=== PATIENT | male | born 1970 | race Caucasian/White ===

== ENCOUNTER 2016-11-01 18:41 | Emergency (ER) ==
[2016-11-01] MEDS ORDERED: NORFLEX IM ONE (19:40)
[2016-11-01] MEDS ORDERED: TORADOL IM ONE (19:40)
[2016-11-01] MEDS ORDERED: DILAUDID IM ONE (19:40)
--- NOTE | 2016-11-01 19:45 | PROVIDER DOCUMENTATION ---
HPI-Musculoskeletal Pain/Inj - GENERAL Chief Complaint: Extremity Injury Stated Complaint: @1630 BODY INJURIES Time Seen by Provider: 11/01/16 19:11 Source: patient - HX OF PRESENT ILLNESS-MUSKULOSKELTAL Nature of Presenting Problem: 45 y/o WM c/o back pain, neck pain, R hand pain x 2 hours s/p fall from 15 foot ladder. Pt states that he was collapsing a 28 foot ladder while he was at the 15 foot height when the ladder fell forward, hit the house, and flung him onto his R low back. States R hand pain, as his R hand got caught in the rung during collapsing ladder. Reports LROM in neck; pain in lumbar and thoracic back; shooting pain radiating into LLE. Denies inability to ambulate, head injury, LOC. Pt states hx of seizures. States pain 06/06. Review of Systems - Adult - REVIEW OF SYSTEMS - ADULT Constitutional: reports: no symptoms reported. denies: chills, fever Eyes: reports: no symptoms reported. denies: blurred vision, double vision Ears, Nose, Mouth & Throat: reports: no symptoms reported. denies: ear pain, nose pain Cardiovascular: reports: no symptoms reported. denies: see HPI, palpitations Respiratory: reports: no symptoms reported. denies: dyspnea on exertion, shortness of breath Gastrointestinal: reports: no symptoms reported. denies: abdominal pain, nausea , vomiting Genitourinary: reports: no symptoms reported. denies: dysuria, frequency Musculoskeletal: reports: see HPI, back pain, joint pain, neck pain. denies: joint swelling Integumentary: reports: no symptoms reported. denies: nail changes, rash Neurological: reports: see HPI. denies: dizziness/vertigo, headache/migraines, numbness, paresthesia Psychiatric: reports: no symptoms reported Endocrine: reports: no symptoms reported. denies: cold intolerance, heat intolerance Hematologic/Lymphatic: reports: no symptoms reported. denies: easy bruising, prolonged bleeding Allergic/Immunologic: reports: no symptoms reported All Other Systems: Reviewed and Negative Past History - Adult - PAST MEDICAL HISTORY-ADULT Review of Records: reports: Nursing Assessment Review, Medications Reviewed - SOCIAL HISTORY Smoking: cigarettes, greater than 1 pack/day Provider spent 3-5 mins advising pt. on dangers of tobacco.: Discussed manners to quit use, and f/u contacts for add'l counseling. Alcohol Use Frequency: never Physical Exam-Injury Related - Physical Exam-Injury Related Initial Vital Signs Reviewed: Yes General Appearance: alert, mild distress Eyes: PERRL/EOMI, pink conjunctivae. negative: EOM palsy Head, Ears, Nose, Mouth & Throat: normocephalic/atraumatic, moist mucous membranes Neck: normal inspection, C-spine tenderness. negative: nexus criteria negative Respiratory: chest non-tender, lungs clear, normal breath sounds. negative: crackles, rales, rhonchi, stridor, wheezing Cardiovascular: regular rate, rhythm. negative: bradycardia, tachycardia Abdominal Exam: normal bowel sounds, non tender, soft. negative: distended, guarding, rigid, rebound Back Exam: vertebral tenderness (C, T, L spine), other (TTP R low back) Extremity: normal capillary refill, pelvis stable, swelling (R hand), tenderness (R hand). negative: abnormal NV exam Integumentary: normal color, warm/dry Neurologic: negative: aphasia Psych/Mental Status: AL, normal mood/affect, normal thought content, normal thought process, oriented x 3 Progress - PLAN OF CARE/RESULTS Progress/Plan/Lab Results: Orders Category Date Time Status HAND COMPLETE LEFT [RAD] Stat Exams 11/01/16 19:34 Taken HEAD/C-SPINE W/O CONTRAST [CT] Stat Exams 11/01/16 19:34 Taken LUMBAR SPINE W/O CONTRAST [CT] Stat Exams 11/01/16 19:34 Taken PELVIS [RAD] Stat Exams 11/01/16 19:35 Taken SHOULDER-RIGHT [RAD] Stat Exams 11/01/16 19:35 Taken THORACIC SPINE W/O CONTRAST [CT] Stat Exams 11/01/16 Taken Hydromorphone [Dilaudid] Med 11/01/16 19:40 Discontinued 2 mg IM NOW ONE Ketorolac [Toradol] Med 11/01/16 19:40 Discontinued 60 mg IM NOW ONE Orphenadrine [Norflex] Med 11/01/16 19:40 Discontinued 60 mg IM NOW ONE Vital Signs Temp Pulse Resp BP Pulse Ox 11/01/16 18:59 98.7 F 87 18 162/92 99 orange Allergy (Verified 11/01/16 19:42) ANAPHYLAXIS Lamotrigine [Lamictal] 25 mg PO DAILY 11/01/16 Meloxicam [Mobic] 15 mg PO DAILY #30 tablet 11/01/16 Methocarbamol [Robaxin] 500 mg PO BID #30 tablet 11/01/16 Tramadol [Ultram] 50 mg PO Q8HR #20 tablet 11/01/16 Discussed medication use, ice and heat therapy, and f/u with ortho with the pt. - XRAY 1 XRAY Study: Pelvis XRAY Interpretation: No fx 2 XRAY: Right XRAY Study: Hand XRAY Interpretation: No fx 3 XRAY: Right XRAY Study: Shoulder XRAY Interpretation: No fx - CT/MRI 1 CT Study: Cervical Spine, Head, other (thoracic spine) Impression: See EMR Report (head: no evidence of intracranial injury. Cspine: no fx, no subluxation. Chronic appearing deformity at posterior spinous process of T1. -per Dr. Peter) 2 CT Study: Lumbar Spine Impression: See EMR Report (No fracture, no subluxation) Procedures - SPLINTING Left Upper Extremity Pre-Procedure Neurovascular Exam: Intact Pre-Fabricated Splint: Wrist Applied By: ED Nurse Post Procedure Neurovascular Exam: Intact Procedure Comment: Pt tolerated well Departure - Departure Time of Disposition Order: 21:08 DIAGNOSIS: Fall Qualifiers: Encounter type: initial encounter Qualified Code(s): W19.XXXA - Unspecified fall, initial encounter Thoracic back sprain Qualifiers: Encounter type: initial encounter Qualified Code(s): S23.9XXA - Sprain of unspecified parts of thorax, initial encounter Lumbar back sprain Qualifiers: Encounter type: initial encounter Qualified Code(s): S33.5XXA - Sprain of ligaments of lumbar spine, initial encounter Neck sprain Qualifiers: Encounter type: initial encounter Qualified Code(s): S13.9XXA - Sprain of joints and ligaments of unspecified parts of neck, initial encounter Hand injury Qualifiers: Encounter type: initial encounter Laterality: left Qualified Code(s): S69.92XA - Unspecified injury of left wrist, hand and finger(s), initial encounter Disposition: HOME 01 Certified Medical Emergency: Emergent Condition: Stable Additional Instructions: Take medications as directed. Follow up with specialist for further management. RICE or heat as needed. ED Follow Up Instructions: You have been treated by a care provider in the Emergency Department. These instructions are being provided to you so you can have an understanding of how to care for yourself upon discharge. Upon discharge from the Emergency Department, you are responsible for making arrangements for follow-up care by a physician of your choice. Take all prescribed medications as directed. Return to the Emergency Department immediately for any new or worsening symptoms. You may call the Physician Referral phone number at [phone] to obtain a list of Physicians who are taking new patients. Prescriptions: Meloxicam [Mobic] 15 mg PO DAILY #30 tablet Methocarbamol [Robaxin] 500 mg PO BID #30 tablet Tramadol [Ultram] 50 mg PO Q8HR #20 tablet Referrals: None,PCP [Primary Care Provider] - Hermelindo Alonso MD [STAFF PHYSICIAN] - Instructions: Thoracic Strain, Back Pain, Adult, [id number] Attestation - Physician/ Mid-level Attestation Patient care was provided by Mid-level provider (BULB GRADER/PA):: Yes Mid-level provider:: Kati Brenner Mid-level documentation review:: The Mid-level provider documentation, treatment plan and medical decision making was reviewed by the physician who agrees with all treatment and medical decision making by the P.
[2016-11-01 21:38] VITALS: BP 144/93
--- NOTE | 2016-11-02 07:47 | Diag Imaging Result Document ---
PROCEDURE NAME: HEAD/C-SPINE W/O CONTRAST - 11/01/2016 CT HEAD AND C-SPINE WITHOUT CONTRAST: COMPARISON: None available. FINDINGS: HEAD: There is no discrete intracranial mass, mass effect, or intracranial hemorrhage. There is no evidence of hydrocephalus. There is no evidence of acute infarct. Surrounding soft tissues are grossly unremarkable. Calvaria is intact. C-SPINE: There is a chronic defect at the posterior aspect of the spinous process of T1. There is no evidence of acute fracture, subluxation, or intrinsic osseous lesion, otherwise. There is minimal endplate degenerative change at several cervical levels. The central canal appears to be patent. There is nonspecific prominence of the soft tissues at the level of the right vallecula of uncertain significance. Please correlate clinically. Surrounding soft tissues are essentially unremarkable, otherwise. IMPRESSION: 1. No evidence of acute intracranial pathology. 2. No evidence of fracture or other definite acute C-spine injury. 3. Nonspecific asymmetry with slightly prominent soft tissues at the level of the vallecula on the right.
--- NOTE | 2016-11-02 07:49 | Diag Imaging Result Document ---
PROCEDURE NAME: LUMBAR SPINE W/O CONTRAST - 11/01/2016 CT LUMBAR SPINE WITHOUT CONTRAST: COMPARISON: None available. FINDINGS: There is degenerative disk disease throughout the lumbar spine with marginal osteophyte formation and broad-based disk osteophyte complexes, most prominent at and below L3-4 where there is some degree of central canal and foraminal narrowing. This appears chronic. There is no evidence of fracture, subluxation, or intrinsic osseous lesion, otherwise. The intervertebral disk spaces and vertebral body heights appear to be relatively well preserved. Surrounding soft tissues are essentially unremarkable. IMPRESSION: Multilevel degenerative change but no evidence of fracture or other definite acute L- spine injury.
--- NOTE | 2016-11-02 07:50 | Diag Imaging Result Document ---
PROCEDURE NAME: THORACIC SPINE W/O CONTRAST - 11/01/2016 CT THORACIC SPINE WITHOUT CONTRAST: COMPARISON: None available. FINDINGS: There is a chronic defect involving the T1 spinous process that may represent an old ununited fracture or an accessory ossification center that is not fused. There are other chronic defects that are smaller at T3, T4, and T5 at the spinous process. There is multilevel endplate degenerative change at and below the T7-8 level with bulky ventral marginal osteophyte formation and mild loss of disk space height. There is no evidence of acute fracture, subluxation, or intrinsic osseous lesion, otherwise. The central canal appears to be patent. Surrounding soft tissues are essentially unremarkable. IMPRESSION: Chronic changes as described but no evidence of acute fracture or other evidence of acute T-spine injury.
--- NOTE | 2016-11-02 07:59 | Diag Imaging Result Document ---
PROCEDURE NAME: PELVIS - 11/01/2016 AP PELVIS: FINDINGS: There is no evidence of acute fracture or dislocation. No other definite bony abnormalities are present. IMPRESSION: No acute disease.
--- NOTE | 2016-11-02 08:00 | Diag Imaging Result Document ---
PROCEDURE NAME: SHOULDER-RIGHT - 11/01/2016 RIGHT SHOULDER, THREE VIEWS: FINDINGS: There is no evidence of acute fracture or dislocation. No previous studies are available for comparison. IMPRESSION: No acute bony disease.
--- NOTE | 2016-11-02 08:01 | Diag Imaging Result Document ---
PROCEDURE NAME: HAND COMPLETE LEFT - 11/01/2016 LEFT HAND, THREE VIEWS: FINDINGS: There are some degenerative changes, particularly in the metacarpophalangeal joint of the thumb and the interphalangeal joints, particularly the distal interphalangeal joint of the middle finger. No evidence of acute fracture or dislocation is present. There may be old posttraumatic deformity of the fifth metacarpal. IMPRESSION: Chronic changes, as described.
== END 2016-11-01 21:39 | disposition home or self-care (01) ==
LOC: ED 18:41
DX: S33.5XXA Sprain of ligaments of lumbar spine, initial encounter (principal); S23.3XXA Sprain of ligaments of thoracic spine, initial encounter; S13.9XXA Sprain of joints and ligaments of unspecified parts of neck, initial encounter; S69.92XA Unspecified injury of left wrist, hand and finger(s), initial encounter; M54.2 Cervicalgia; M54.5 Low back pain; M54.6 Pain in thoracic spine; M79.641 Pain in right hand; Z79.899 Other long term (current) drug therapy; M79.605 Pain in left leg; M79.89 Other specified soft tissue disorders; M47.9 Spondylosis, unspecified; F17.210 Nicotine dependence, cigarettes, uncomplicated; Z71.6 Tobacco abuse counseling; W11.XXXA Fall on and from ladder, initial encounter
CPT/HCPCS: 70450; 72125; 72128; 72131; 72170; 96372; J1170; J1885; J2360